=== PATIENT | female | born 1990 | race American Indian/Alaskan Native ===

== ENCOUNTER 2017-05-12 07:43 | Emergency (ER) | payer OTHER ==
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
[2017-05-12 13:46] LABS: Basophils % (Auto) 0.3 % (0.0-1.8); Eosinophils % (Auto) 0.8 % (0.0-4.3); Hematocrit 39.2 % (30.3-42.9); Hemoglobin 13.2 gm/dl (10.1-14.3); Mean Corpuscular HGB Conc 34 % (30-34); Mean Corpuscular Hemoglobin 35 pg (28-32); Mean Corpuscular Volume 103 fl (79-97); Platelet Count 270 K/mm3 (140-440); Red Blood Count 3.82 M/mm3 (3.65-5.03); Red Cell Distribution Width 13.6 % (13.2-15.2); White Blood Count 6.2 K/mm3 (4.5-11.0)
[2017-05-12 13:50] LABS: Anion Gap 18 mmol/L; BUN/Creatinine Ratio 23; Blood Urea Nitrogen 14 mg/dL (7-17); Calcium 8.2 mg/dL (8.4-10.2); Carbon Dioxide 22 mmol/L (22-30); Chloride 103.9 mmol/L (98-107); Glucose 87 mg/dL (65-100); Potassium 3.6 mmol/L (3.6-5.0); Sodium 140 mmol/L (137-145)
[2017-05-12] MEDS ORDERED: NORCO 5/325 PO ONE (14:09)
[2017-05-12 14:23] VITALS: BP 135/84
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
[2017-05-12] MEDS ORDERED: BSS ONE (17:13)
[2017-05-12] MEDS ORDERED: FUL-GLO OP ONE ×2 (17:13→18:36)
[2017-05-12] MEDS ORDERED: TETRACAINE 0.5% ONE (17:13)
[2017-05-12] MEDS ORDERED: TETRACAINE 0.5% OU PRN (18:34)
[2017-05-12] MEDS ORDERED: BSS OU ONE (18:37)
== END 2017-05-12 19:00 | disposition home or self-care (01) ==
LOC: ED 07:43
DX: S02.81XA Fracture of other specified skull and facial bones, right side, initial encounter for closed fracture (principal); W22.8XXA Striking against or struck by other objects, initial encounter; Y93.89 Activity, other specified; Y92.89 Other specified places as the place of occurrence of the external cause; Y99.8 Other external cause status
CPT/HCPCS: 36415; 70450; 70480; 80048; 84702; 85025; 86900; 86901